=== PATIENT | female | born 1985 | race Caucasian/White ===

== ENCOUNTER 2025-04-03 14:21 | Outpatient (OUT) | payer BC, SELFPAY ==
[2025-04-03 15:07] LABS: Hematocrit 39.2 % (36.0-48.0); Hemoglobin 13.5 g/dL (12.0-16.0); Immature Granulocytes Abs Auto 0.01 10^3/uL (0.00-0.03); Immature Granulocytes Pct Auto 0.2 % (0.0-0.5); Lymphocytes Absolute Auto 1.7 10^3/uL (1.2-3.8); Mean Corpuscular HGB Conc 34.4 g/dL (29.9-35.2); Mean Corpuscular Hemoglobin 33.8 pg (26.7-34.0); Mean Corpuscular Volume 98.2 fL (81.0-99.0); Platelet Count 210 10^3/uL (150-450); Red Blood Count 3.99 10^6/uL (4.20-5.40); White Blood Count 5.5 10^3/uL (4.0-11.0)
[2025-04-03 15:33] LABS: Iron 59.0 ug/dL (50.0-170.0)
[2025-04-03 15:52] LABS: Alanine Aminotransferase 33 U/L (14-59); Albumin Globulin Ratio 1.2; Albumin Level 3.9 g/dL (3.4-5.0); Alkaline Phosphatase 65 U/L (46-116); Anion Gap 9.8; Aspartate Amino Transferase 17 U/L (15-37); Blood Urea Nitrogen 14.0 mg/dL (7.0-18.0); Calcium 8.7 mg/dL (8.5-10.1); Carbon Dioxide 28.5 mmol/L (21.0-32.0); Chloride 108 mmol/L (98-107); Cholesterol 179 mg/dL (<=200); Estimated GFR (African America >60 (>=60 mL/min/1.73m^2); Estimated GFR (Non-African Ame >60 (>=60 mL/min/1.73m^2); Free T3 2.63 pg/mL (2.18-3.98); Globulin 3.2 g/dL; Glucose 86 mg/dL (74-106); HDL Cholesterol 89 mg/dL (40-60); Potassium 4.3 mmol/L (3.5-5.1); Sodium 142 mmol/L (136-145); Thyroid Stimulating Hormone 0.871 uIU/mL (0.358-3.740); Total Protein 7.1 g/dL (6.4-8.2); Triglycerides 34 mg/dL (<=150); Uric Acid 3.8 mg/dL (2.6-6.0); VLDL CHOLESTEROL 6.8 mg/dL
[2025-04-06 12:08] LABS: Antinuclear Antibodies, IFA Negative (.)
== END 2025-04-03 14:22 | disposition home or self-care (01) ==
LOC: LAB 14:27
PROVIDERS: PCP Family Medicine; Visit Provider Family Medicine
DX: M54.12 Radiculopathy, cervical region (principal); M25.50 Pain in unspecified joint; R73.09 Other abnormal glucose; D64.9 Anemia, unspecified; R53.83 Other fatigue; E55.9 Vitamin D deficiency, unspecified
CPT/HCPCS: 36415; 80053; 80061; 82306; 83036; 83525; 83540; 84436; 84443; 84481; 84550; 85025; 85652; 86038; 86060; 86140; 86431